=== PATIENT | male | born 1960 | race Caucasian/White ===

== ENCOUNTER 2016-12-14 21:07 | Observation (INO) | payer OTHER ==
[~2016-12-14] VITALS: Ht 172.7 cm; Wt 120.0 kg
[2016-12-14 22:52] VITALS: Ht 172.7 cm; Wt 120.0 kg
[2016-12-15] MEDS ORDERED: PIPER-TAZO 3.375 GM IV (PMX) 100 ML IVPB STA (01:15)
[2016-12-15] MEDS ORDERED: VANCOMYCIN 1 GM (PMX) 250 ML IVPB STA (01:15)
--- NOTE | 2016-12-15 02:01 | RADRPT ---
PROCEDURE: XR Chest. CLINICAL INDICATION: Possible sepsis. TECHNIQUE: Single frontal view of the chest. COMPARISON: None. FINDINGS: The cardiomediastinal silhouette is within normal limits. Mild atelectasis at the left lung base. T he lungs are otherwise clear. No signs of pleural fluid or pneumothorax are seen. The osseous struct ures and soft tissues are unremarkable. IMPRESSION: 1. Mild atelectasis at the left lung base. 2. Otherwise, no evidence for active cardiopulmonary disease. RPTAT: UU Physician Vitaliy Date Time Electronically viewed and signed by Physician Vitaliy on 12/15/2016 02:01 RS/
[2016-12-15 02:09] LABS: BASOPHIL # 0.1 10^3/ul (0.0-0.1); BASOPHILS % 0.5 % (0.0-2.0); EOSINOPHILS # 0.5 10^3/ul (0.0-0.5); EOSINOPHILS % 4.9 % (0.0-7.0); HEMOGLOBIN 14.5 g/dl (14.0-18.0); LYMPHOCYTES # 2.9 10^3/ul (0.8-2.9); LYMPHOCYTES % 26.5 % (15.0-51.0); MEAN CORPUSCULAR HEMOGLOBIN 29.1 pg (29.0-33.0); MEAN CORPUSCULAR HGB CONC 34.5 g/dl (32.0-37.0); MEAN CORPUSCULAR VOLUME 84.2 fl (82.0-101.0); MONOCYTE # 0.7 10^3/ul (0.3-0.9); MONOCYTES % 5.9 % (0.0-11.0); NEUTROPHILS % 61.7 % (39.0-77.0); PLATELET COUNT 252 10^3/UL (140-415); RED BLOOD COUNT 4.99 10^6/ul (4.70-6.10); RED CELL DISTRIBUTION WIDTH 13.2 % (11.5-14.5)
[2016-12-15 02:25] LABS: INR 0.91; PROTIME 12.3 Sec (12.2-14.2)
[2016-12-15 02:26] LABS: PARTIAL THROMBOPLASTIN TIME 31.2 Sec (25.0-35.0)
[2016-12-15 02:28] LABS: ADD UMIC NO; UR ASCORBIC ACID NEGATIVE (NEGATIVE); UR BILIRUBIN (Dip) NEGATIVE (NEGATIVE); UR BLOOD (Dip) NEGATIVE (NEGATIVE); UR CLARITY CLEAR (CLEAR); UR COLOR YELLOW (YELLOW); UR GLUCOSE (Dip) NEGATIVE (NEGATIVE); UR KETONES (Dip) NEGATIVE (NEGATIVE); UR LEUKOCYTE ESTERASE (Dip) NEGATIVE Leu/ul (NEGATIVE); UR NITRITE (Dip) NEGATIVE (NEGATIVE); UR SPECIFIC GRAVITY (Dip) 1.023 (1.003-1.030); UR TOTAL PROTEIN (Dip) NEGATIVE (NEGATIVE); UR UROBILINOGEN (Dip) NEGATIVE (NEGATIVE)
[2016-12-15 02:30] LABS: ALANINE AMINOTRANSFERASE 51 IU/L (13-69); ALBUMIN/GLOBULIN RATIO 1.21; ALKALINE PHOSPHATASE 71 IU/L (42-121); ANION GAP 18 (8-16); ASPARTATE AMINO TRANSFERASE 25 IU/L (15-46); BILIRUBIN,INDIRECT 0.6 mg/dl (0-1.1); BILIRUBIN,TOTAL 0.6 mg/dl (0.2-1.3); BLOOD UREA NITROGEN 15 mg/dl (7-20); CALCIUM 9.5 mg/dl (8.4-10.2); CARBON DIOXIDE 29 mmol/L (21-31); CHLORIDE 97 mmol/L (97-110); CREATININE 0.85 mg/dl (0.61-1.24); GLUCOSE 139 mg/dl (70-220); POTASSIUM 4.2 mmol/L (3.5-5.1); SODIUM 140 mmol/L (135-144); TOTAL PROTEIN 7.3 g/dl (6.1-8.1)
[2016-12-15] MEDS ORDERED: FUROSEMIDE 40 MG INJ IV ONE (03:00)
[2016-12-15 03:06] LABS: TROPONIN-I < 0.012 ng/ml (0.00-0.12)
--- NOTE | 2016-12-15 03:23 | ERA ---
ER Documentation Chief Complaint Date/Time DATE: 12/15/16 TIME: 03:21 Chief Complaint Cellulitis on right lower leg with drainage. PMD encouraged pt. to [facility] ER HPI 48-year-old male so at his right lower leg with drainage. He was on outpatient antibiotics and was rechecked by PMD told to come in to be further evaluated for intravenous antibiotics and possible admission. Denies any fevers or chills does complain of chronic swelling of his legs. ROS All systems reviewed and are negative except as per history of present illness. Allergies Allergies: Coded Allergies: Unknown: Unable to obtain (Unverified , 12/15/16) Physical Exam Vitals Vital Signs Date Time Temp Pulse Resp B/P Pulse Ox O2 Delivery O2 Flow Rate FiO2 12/14/16 22:52 98.6 101 18 137/85 96 Physical Exam Const: [] Head: Atraumatic Eyes: Normal Conjunctiva ENT: Normal External Ears, Nose and Mouth. Neck: Full range of motion..~ No meningismus. Resp: Clear to auscultation bilaterally Cardio: Regular rate and rhythm, no murmurs Abd: Soft, non tender, non distended. Normal bowel sounds Skin: Right lower extremity with erythema induration and purulent drainage involving distal midcalf Back: No midline or flank tenderness Ext: No cyanosis, or edema Neur: Awake and alert Psych: Normal Mood and Affect Result Diagram: 12/15/16 0149 12/15/16 014 Results 24 hrs Laboratory Tests Test 12/15/16 01:49 White Blood Count 11.010^3/ul Red Blood Count 4.9910^6/ul Hemoglobin 14.5g/dl Hematocrit 42.0% Mean Corpuscular Volume 84.2fl Mean Corpuscular Hemoglobin 29.1pg Mean Corpuscular Hemoglobin Concent 34.5g/dl Red Cell Distribution Width 13.2% Platelet Count 26601^3/UL Mean Platelet Volume 9.0fl Neutrophils % 61.7% Lymphocytes % 26.5% Monocytes % 5.9% Eosinophils % 4.9% Basophils % 0.5% Nucleated Red Blood Cells % 0.0/100WBC Neutrophils # (Manual) 6.810^3/ul Lymphocytes # 2.910^3/ul Monocytes # 0.710^3/ul Eosinophils # 0.510^3/ul Basophils # 0.110^3/ul Nucleated Red Blood Cells # 0.010^3/ul Prothrombin Time 12.3Sec Prothrombin Time Ratio 1.0 INR International Normalized Ratio 0.91 Activated Partial Thromboplast Time 31.2Sec Urine Color YELLOW Urine Clarity CLEAR Urine pH 5.0 Urine Specific [place] 1.023 Urine Ketones NEGATIVEmg/dL Urine Nitrite NEGATIVEmg/dL Urine Bilirubin NEGATIVEmg/dL Urine Urobilinogen NEGATIVEmg/dL Urine Leukocyte Esterase NEGATIVELeu/ul Urine Hemoglobin NEGATIVEmg/dL Urine Glucose NEGATIVEmg/dL Urine Total Protein NEGATIVEmg/dl Sodium Level 140mmol/L Potassium Level 4.2mmol/L Chloride Level 97mmol/L Carbon Dioxide Level 29mmol/L Anion Gap 18 Blood Urea Nitrogen 15mg/dl Creatinine 0.85mg/dl Glucose Level 139mg/dl Lactic Acid Level 1.7mmol/L Calcium Level 9.5mg/dl Total Bilirubin 0.6mg/dl Direct Bilirubin 0.00mg/dl Indirect Bilirubin 0.6mg/dl Aspartate Amino Transf (AST/SGOT) 25IU/L Alanine Aminotransferase (ALT/SGPT) 51IU/L Alkaline Phosphatase 71IU/L Troponin I < 0.012ng/ml Total Protein 7.3g/dl Albumin 4.0g/dl Globulin 3.30g/dl Albumin/Globulin Ratio 1.21 Current Medications Medications (Trade) Dose Ordered Sig/Theodora Route PRN Reason Start Time Stop Time Status Last Admin Dose Admin Vancomycin HCl 250 ml @ 125 mls/hr ONCE STAT IVPB 12/15/16 01:15 12/15/16 03:14 DC 12/15/16 02:15 Piperacillin Sod/ Tazobactam Sod (Zosyn 3.375gm/ 100 ml (Pmx)) 100 ml @ 100 mls/hr ONCE STAT IVPB 12/15/16 01:15 12/15/16 02:14 DC 12/15/16 01:15 Furosemide (Lasix) 40 mg ONCE ONCE IV 12/15/16 03:00 12/15/16 03:01 DC Procedures/MDM Blood cultures pending. Chest X-ray 1V Interpreted by me: Soft Tissue: No acute abnormalities Bones: No acute abnormalities Mediastinum/Cardiac Silhouette/Lungs: No acute abnormalities EKG: Rate/Rhythm: Normal Sinus Rhythm QRS, ST, T-waves: No changes consistent w/ acute ischemia Impression: No evidence of ischemia or arrhythmia Medical decision-makin-year-old male was cellulitis of lower extremity with outpatient management failure. Patient will be admitted to Departure Diagnosis: Primary Impression: Cellulitis Qualified Code: L03.115 - Cellulitis of right lower extremity Condition: Serious ELIESER CORREA Dec 15, 2016 03:23
[2016-12-15] MEDS ORDERED: GABA100C14 PO (03:49)
[2016-12-15] MEDS ORDERED: LOSA1TAB19 PO (03:49)
[2016-12-15] MEDS ORDERED: METF-480 PO (03:49)
[2016-12-15] MEDS ORDERED: HYDR-902 PO (03:49)
[2016-12-15] MEDS ORDERED: ASPI-664 PO (03:49)
[2016-12-15] MEDS ORDERED: DIPH25CA6 PO (03:49)
[2016-12-15] MEDS ORDERED: DOCUSATE SODIUM 100 MG CAP PO PRN (04:00)
[2016-12-15] MEDS ORDERED: ONDANSETRON 4 MG INJ IV PRN (04:00)
[2016-12-15] MEDS ORDERED: BISACODYL 10 MG SUPP PR PRN (04:00)
[2016-12-15] MEDS ORDERED: ACETAMINOPHEN 325 MG TAB PO PRN (04:00)
[2016-12-15] MEDS ORDERED: VANCOMYCIN IV PER PHARMACY XX SCH (04:00)
[2016-12-15] MEDS ORDERED: MAGNESIUM HYDROXIDE 30ML CUP PO PRN (04:00)
[2016-12-15] MEDS ORDERED: NACL 0.9% 3 ML SYG IV SCH (04:00)
[2016-12-15] MEDS ORDERED: DIPHENHYDRAMINE 25 MG CAP PO PRN (04:00)
[2016-12-15] MEDS ORDERED: VANCOMYCIN 1 GM in NS 250 ML IVPB SCH (05:00)
[2016-12-15] MEDS ORDERED: FUROSEMIDE 40 MG INJ IV SCH (06:00)
[2016-12-15 06:12] LABS: BASOPHIL # 0.1 10^3/ul (0.0-0.1); BASOPHILS % 0.6 % (0.0-2.0); EOSINOPHILS # 0.4 10^3/ul (0.0-0.5); EOSINOPHILS % 5.4 % (0.0-7.0); HEMATOCRIT 41.5 % (42.0-52.0); LYMPHOCYTES # 2.5 10^3/ul (0.8-2.9); LYMPHOCYTES % 31.7 % (15.0-51.0); MEAN CORPUSCULAR HEMOGLOBIN 28.6 pg (29.0-33.0); MEAN CORPUSCULAR HGB CONC 33.7 g/dl (32.0-37.0); MEAN CORPUSCULAR VOLUME 84.9 fl (82.0-101.0); MONOCYTE # 0.5 10^3/ul (0.3-0.9); MONOCYTES % 5.8 % (0.0-11.0); PLATELET COUNT 239 10^3/UL (140-415); RED BLOOD COUNT 4.89 10^6/ul (4.70-6.10); RED CELL DISTRIBUTION WIDTH 13.3 % (11.5-14.5)
[2016-12-15 06:55] LABS: CALCIUM 8.9 mg/dl (8.4-10.2); CREATININE 0.84 mg/dl (0.61-1.24); MAGNESIUM 1.9 mg/dl (1.7-2.5); PHOSPHORUS 4.6 mg/dl (2.5-4.9); POTASSIUM 3.7 mmol/L (3.5-5.1)
[2016-12-15] MEDS: INSULIN ASPART [NOVOLOG] 3 ML PEN SC SCH ×4 (08:00→21:00)
--- NOTE | 2016-12-15 08:17 | RADRPT ---
PROCEDURE: Ultrasound of the bilateral lower extremity venous system. CLINICAL INDICATION: Bilateral lower extremity pain. TECHNIQUE: Bobo scale with and without compression, color doppler, spectral doppler of the venous system of the bilateral lower extremities was performed. Venous augmentation maneuvers were utilized . COMPARISON: No prior studies are available for comparison. FINDINGS: RIGHT: Common femoral vein:Patent and compressible. Femoral vein:Patent and compressible. Popliteal vein:Patent and compressible. Visualized calf veins:Right calf veins limited visualization due to wound dressing. Soft tissues:Normal LEFT: Common femoral vein:Patent and compressible. Femoral vein:Patent and compressible. Popliteal vein:Patent and compressible. Visualized calf veins:Patent and compressible. Soft tissues:Normal IMPRESSION: 1. No evidence of deep vein thrombosis. RPTAT: AACC Physician Stephen Date Time Electronically viewed and signed by Physician Stephen on 12/15/2016 08:17 /
[2016-12-15] MEDS ORDERED: DEXTROSE 50% 50 ML SYRINGE IV PRN ×2 (08:30)
[2016-12-15] MEDS ORDERED: GLUCOSE GEL 15 GRAM TUBE PO PRN ×2 (08:30)
[2016-12-15] MEDS ORDERED: GLUCOSE GEL 15 GRAM TUBE BUCCAL PRN (08:30)
[2016-12-15] MEDS ORDERED: GLUCAGON 1 MG INJ IM PRN (08:30)
[2016-12-15] MEDS: HYDROCODONE/APAP (10/325) TAB PO PRN (08:49)
[2016-12-15] MEDS: FUROSEMIDE 40 MG INJ IV SCH ×2 (08:51→17:54)
[2016-12-15] MEDS: ENOXAPARIN 40 MG/0.4 ML SYG SC SCH (08:58)
[2016-12-15] MEDS: GABAPENTIN 100 MG CAP PO SCH ×2 (12:10→23:54)
[2016-12-15] MEDS: ASPIRIN (EC) 81 MG TAB PO SCH (12:11)
[2016-12-15] MEDS: FAMOTIDINE 20 MG TAB PO SCH ×2 (12:11→23:54)
[2016-12-15] MEDS: LEVOFLOXACIN 750 MG TABLET PO SCH (12:11)
[2016-12-15 13:43] VITALS: TEMP 98.2
[2016-12-15] MEDS: metFORMIN 500 MG TAB PO SCH ×2 (13:46→19:40)
[2016-12-15] MEDS ORDERED: VANCOMYCIN 1.5 GM in SOD CHLORIDE 0.9% 250 ML IVPB SCH (14:00)
[2016-12-15 14:35] VITALS: BP 114/76; PULSE 94; RESP 20
[2016-12-15] MEDS ORDERED: LIDOCAINE 1% (MPF) 5 ML VIAL SC ONE (19:30)
--- NOTE | 2016-12-15 20:54 | HP ---
Date/Time of Note Date/Time of Note DATE: 12/15/16 TIME: 20:39 Assessment/Plan VTE Prophylaxis VTE Prophylaxis Intervention: LMWH Assessment/Plan Assessment/Plan 56-year-old male with: 1. Right lower extremity cellulitis, likely infected wound, wrapping still in place, wound care pending, wound culture pending. Continue IV vancomycin with p.o. Levaquin PICC line placement in a.m. Wound care consult and evaluation in a.m. Plan of care discussed with patient and his parents at bedside. 2. Diabetes mellitus: continue metformin, sliding scale insulin, hemoglobin A1c 6.6. 3. Hypertension: Continue outpatient medications 4. Hyperlipidemia: Check fasting lipid panel, statin therapy if needed 5. Tobacco use: he is encouraged to quit, nicotine patch if needed. Prophylaxis: Lovenox for DVT prophylaxis, Pepcid for GI prophylaxis Disposition: Wound care evaluation, PICC line placement in a.m., IV antibiotics , discharge planning in the next 24 to 48 hours HPI/ROS Admit Date/Time Admit Date/Time Dec 15, 2016 at 02:52 Hx of Present Illness Chief complaint: Right leg infection History of presenting illness: This is a 56-year-old male with history of ichthyosis and dry skin especially of the lower extremities, diabetes mellitus, hypertension, hyperlipidemia who was recently treated at an outside hospital for cellulitis and wound infection right lower extremity apparently finished IV antibiotic course 3 weeks ago, was doing well until 3 days ago when he started noticing increased erythema, edema, pruritus and pain of the right lower extremity adjacent to the wound he has. He does have a wrap on currently but there is erythema above the wrap. He denies any fevers, chills, nausea, vomiting. He was sent over to the emergency department by his primary care physician apparently to be admitted for wound care and IV antibiotics. He was started on Levaquin along with IV vancomycin, white blood cell count has improved today. Was still waiting for wound care to evaluate and see patient. Plan is for the patient to be discharged in the next 48 hours if no surgical intervention needed with IV antibiotics for home and wound care as an outpatient. ROS Constitutional: no complaints Eyes: no complaints ENT: no complaints Respiratory: no complaints Cardiovascular: no complaints Gastrointestinal: no complaints Genitourinary: no complaints Musculoskeletal: no complaints Skin: other (Dry skin with patches, right lower extremity with wrap and old dressing in place), pruritis Neurologic: no complaints Psychological: no complaints PMH/Family/Social Past Medical History Medical History: diabetes, hypertension, other (Obesity) Past Surgical History Status post tonsillectomy as a child Family History Significant Family History: no pertinent family hx Social History Alcohol Use: occasionally Smoking Status: Current every day smoker (Up to 1 pack a day the past 40 years) Drug Use: none Exam/Review of Systems Vital Signs Vitals Vital Signs Date Time Temp Pulse Resp B/P Pulse Ox O2 Delivery O2 Flow Rate FiO2 12/15/16 14:35 97.0 94 20 114/76 95 Room Air Exam Constitutional: alert, oriented, other (obese), well developed Psych: no complaints Head: atraumatic, normocephalic Eyes: nl conjunctiva, nl sclera ENMT: mucosa pink and moist, nl external ears & nose, nl lips & teeth, nl nasal mucosa & septum Respiratory: clear to auscultation, normal air movement Cardiovascular: nl pulses, regular rate and rhythm Gastrointestinal: non-tender, soft Musculoskeletal: nl gait and stance, other (Right lower extremity with dressing /wrap in place) Extremities: normal pulses 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 Tenderness to palpation along the dressing) Labs Result Diagram: 12/15/16 0530 12/15/16 0530 Medications Medications Home medications: Refer to admission medication reconciliation Current Medications Ondansetron HCl (Zofran Inj) 4 mg Q6H PRN IV NAUSEA AND/OR VOMITING; Start at 04:00 Acetaminophen (Tylenol Tab) 650 mg Q6H PRN PO PAIN LEVEL 1-3 OR FEVER; Start at 04:00 Morphine Sulfate (morphine) 2 mg Q4H PRN IV SEVERE PAIN LEVEL 7-10; Start 12/15 at 04:00 Docusate Sodium (Colace) 100 mg Q12H PRN PO CONSTIPATION; Start 12/15/16 at 04: 00 Magnesium Hydroxide (Milk Of Mag) 30 ml DAILY PRN PO CONSTIPATION; Start at 04:00 Bisacodyl (Dulcolax Supp) 10 mg DAILY PRN [place] CONSTIPATION; Start 12/15/16 at 04 :00 Famotidine (Pepcid) 20 mg Q12 PO Last administered on 12/15/16 12:11; Admin Dose 20 MG; Start 12/15/16 at 09:00 Enoxaparin Sodium (Lovenox) 40 mg DAILY SC Last administered on 12/15/16 08:58 ; Admin Dose 40 MG; Start 12/15/16 at 09:00 Levofloxacin (Levaquin) 750 mg DAILY@06 PO Last administered on 12/15/16 12:11 ; Admin Dose 750 MG; Start 12/15/16 at 06:00 Aspirin (Halfprin) 81 mg DAILY PO Last administered on 12/15/16 12:11; Admin Dose 81 MG; Start 12/15/16 at 09:00 Diphenhydramine HCl (Benadryl) 25 mg Q6 PRN PO ITCHING Last administered on 04:59; Admin Dose 25 MG; Start 12/15/16 at 04:00 Gabapentin (Neurontin) 200 mg BID PO Last administered on 12/15/16 12:10; Admin Dose 200 MG; Start 12/15/16 at 09:00 Acetaminophen/ Hydrocodone Bitart ([place] (10/325)) 1 tab Q6H PRN PO pain Last administered on 12/15/16 08:49; Admin Dose 1 TAB; Start 12/15/16 at 04:00 Diagnostic Test (Pha) (Accu-Chek) 1 ea 02 XX ; Start 12/16/16 at 02:00 Miscellaneous Information 1 ea NOTE XX ; Start 12/15/16 at 08:30 Glucose (Glutose) 15 gm Q15M PRN PO DECREASED GLUCOSE; Start 12/15/16 at 08:30 Glucose (Glutose) 22.5 gm Q15M PRN PO DECREASED GLUCOSE; Start 12/15/16 at 08: 30 Dextrose (D50w Syringe) 25 ml Q15M PRN IV DECREASED GLUCOSE; Start 12/15/16 at 08:30 Dextrose (D50w Syringe) 50 ml Q15M PRN IV DECREASED GLUCOSE; Start 12/15/16 at 08:30 Glucagon (Glucagen) 1 mg Q15M PRN IM DECREASED GLUCOSE; Start 12/15/16 at 08:30 Glucose 15 gm 15 gm Q15M PRN BUCCAL DECREASED GLUCOSE; Start 12/15/16 at 08:30 Vancomycin HCl/ Sodium Chloride (Vancocin/NS) 250 ml @ 83.333 mls/ hr Q12H IVPB ; Start 12/16/16 at 05:00 Miscellaneous Information (*Rx Drug Level Order Reminder*) VANCOMYCIN TROUGH AT 1600 ONCE ONCE XX ; Start 12/16/16 at 16:00; Stop 12/16/16 at 16:01 Procedures Procedures PROCEDURE: XR Chest. CLINICAL INDICATION: Possible sepsis. TECHNIQUE: Single frontal view of the chest. COMPARISON: None. FINDINGS: The cardiomediastinal silhouette is within normal limits. Mild atelectasis at the left lung base. The lungs are otherwise clear. No signs of pleural fluid or pneumothorax are seen. The osseous structures and soft tissues are unremarkable. IMPRESSION: 1. Mild atelectasis at the left lung base. 2. Otherwise, no evidence for active cardiopulmonary disease. RPTAT: [facility]U Physician Vitaliy Date Time Electronically viewed and signed by Physician Vitaliy on 12/15/2016 02:01 PROCEDURE: Ultrasound of the bilateral lower extremity venous system. CLINICAL INDICATION: Bilateral lower extremity pain. TECHNIQUE: Bobo scale with and without compression, color doppler, spectral doppler of the venous system of the bilateral lower extremities was performed. Venous augmentation maneuvers were utilized. COMPARISON: No prior studies are available for comparison. FINDINGS: RIGHT: Common femoral vein: Patent and compressible. Femoral vein: Patent and compressible. Popliteal vein: Patent and compressible. Visualized calf veins: Right calf veins limited visualization due to wound dressing. Soft tissues: Normal LEFT: Common femoral vein: Patent and compressible. Femoral vein: Patent and compressible. Popliteal vein: Patent and compressible. Visualized calf veins: Patent and compressible. Soft tissues: Normal IMPRESSION: 1. No evidence of deep vein thrombosis. RPTAT: AACC Elvis Chao, Physician Date Time Electronically viewed and signed by Elvis Chao, Physician on 12/15/2016 08: 17 ROSALBA DEE Dec 15, 2016 20:49
[2016-12-15] MEDS: morphine 2 MG INJ IV PRN (23:55)
[2016-12-16 00:16] VITALS: BP 122/72; RESP 19
[2016-12-16] MEDS: ACCU-CHEK XX SCH (02:44)
[2016-12-16 04:12] VITALS: BP 139/69; RESP 18
[2016-12-16] MEDS: VANCOMYCIN 1.5 GM in SOD CHLORIDE 0.9% 250 ML IVPB SCH ×2 (05:45→18:00)
[2016-12-16] MEDS: LEVOFLOXACIN 750 MG TABLET PO SCH (05:45)
[2016-12-16 06:38] LABS: BASOPHIL # 0.1 10^3/ul (0.0-0.1); BASOPHILS % 0.5 % (0.0-2.0); EOSINOPHILS # 0.4 10^3/ul (0.0-0.5); EOSINOPHILS % 4.3 % (0.0-7.0); HEMATOCRIT 39.6 % (42.0-52.0); HEMOGLOBIN 13.2 g/dl (14.0-18.0); LYMPHOCYTES # 1.7 10^3/ul (0.8-2.9); LYMPHOCYTES % 18.3 % (15.0-51.0); MEAN CORPUSCULAR HEMOGLOBIN 28.4 pg (29.0-33.0); MEAN CORPUSCULAR HGB CONC 33.3 g/dl (32.0-37.0); MEAN CORPUSCULAR VOLUME 85.2 fl (82.0-101.0); MEAN PLATELET VOLUME 9.1 fl (7.4-10.4); MONOCYTE # 0.6 10^3/ul (0.3-0.9); MONOCYTES % 6.7 % (0.0-11.0); NEUTROPHILS % 69.7 % (39.0-77.0); PLATELET COUNT 235 10^3/UL (140-415); RED BLOOD COUNT 4.65 10^6/ul (4.70-6.10); RED CELL DISTRIBUTION WIDTH 13.4 % (11.5-14.5); WHITE BLOOD COUNT 9.4 10^3/ul (4.8-10.8)
[2016-12-16 07:04] LABS: PHOSPHORUS 4.5 mg/dl (2.5-4.9)
[2016-12-16 07:08] LABS: CHOL/HDL RATIO 5.3 RATIO
[2016-12-16 07:12] LABS: ALBUMIN 3.6 g/dl (3.3-4.9); ALBUMIN/GLOBULIN RATIO 1.16; BILIRUBIN,INDIRECT 0.7 mg/dl (0-1.1); BILIRUBIN,TOTAL 0.7 mg/dl (0.2-1.3); CALCIUM 9.1 mg/dl (8.4-10.2); CREATININE 0.85 mg/dl (0.61-1.24); POTASSIUM 3.9 mmol/L (3.5-5.1); TOTAL PROTEIN 6.7 g/dl (6.1-8.1)
[2016-12-16 08:00] VITALS: BP 117/72; RESP 18
[2016-12-16] MEDS: FAMOTIDINE 20 MG TAB PO SCH ×2 (08:00→21:22)
[2016-12-16] MEDS: GABAPENTIN 100 MG CAP PO SCH ×2 (08:00→21:22)
[2016-12-16] MEDS: ASPIRIN (EC) 81 MG TAB PO SCH (08:00)
[2016-12-16] MEDS: metFORMIN 500 MG TAB PO SCH ×2 (08:00→17:36)
[2016-12-16] MEDS: ENOXAPARIN 40 MG/0.4 ML SYG SC SCH (08:00)
[2016-12-16] MEDS: INSULIN ASPART [NOVOLOG] 3 ML PEN SC SCH ×4 (09:14→21:00)
[2016-12-16] MEDS: HYDROCODONE/APAP (10/325) TAB PO PRN (12:55)
--- NOTE | 2016-12-16 13:50 | PN ---
Date/Time of Note Date/Time of Note DATE: 12/16/16 TIME: 13:46 Assessment/Plan VTE Prophylaxis VTE Prophylaxis Intervention: LMWH Lines/Catheters IV [facility] Saline Lock Assessment/Plan Assessment/Plan 56-year-old male with: 1. Right lower extremity cellulitis, no infected open wound seen, dressing has been changed this morning by wound care. Wound culture pending. Continue IV vancomycin with p.o. Levaquin PICC line placement today Appreciate wound care consult recommendations this morning MRI right lower extremity pending to rule out osteomyelitis Plan of care discussed with patient 2. Diabetes mellitus: continue metformin, sliding scale insulin, hemoglobin A1c 6.6. 3. Hypertension: Continue outpatient medications 4. Hyperlipidemia: Check fasting lipid panel, statin therapy if needed 5. Tobacco use: he is encouraged to quit, nicotine patch if needed. Prophylaxis: Lovenox for DVT prophylaxis, Pepcid for GI prophylaxis Disposition: MRI right lower extremity, PICC line placement, IV antibiotics, discharge planning in the next 24 hours stable and no further acute findings. Subjective 24 Hr Interval Summary Free Text/Dictation Patient doing well this morning, he remains hemodynamically stable, white blood cell count trending down. PICC line to be placed today, MRI of the right lower extremity ordered. Wound care have seen the patient and changed the dressing, there is no open wound. Exam/Review of Systems Vital Signs Vitals Vital Signs Date Time Temp Pulse Resp B/P Pulse Ox O2 Delivery O2 Flow Rate FiO2 12/16/16 08:00 98.8 88 18 117/72 96 12/15/16 14:35 Room Air Intake and Output 12/15/16 12/15/16 12/16/16 15:00 23:00 07:00 Intake Total 150 ml Balance 150 ml Exam Constitutional: alert, oriented, well developed Respiratory: clear to auscultation, normal air movement Cardiovascular: nl pulses, regular rate and rhythm Gastrointestinal: soft Musculoskeletal: nl gait and stance, other (Right lower extremity cellulitis with significant erythema and edema) Extremities: edema (Lower extremity), normal pulses, other (No clubbing or cyanosis) Neurological: SURGICAL NURSE II-XII intact, nl mental status, nl speech, nl strength Results Result Diagram: 12/16/16 0504 12/16/16 0504 Results 24 hrs Laboratory Tests Test 12/15/16 17:31 12/15/16 23:57 12/16/16 02:36 12/16/16 05:01 Bedside Glucose 137 151 154 Erythrocyte Sedimentation Rate 20.0 Test 12/16/16 05:04 12/16/16 07:52 12/16/16 09:12 12/16/16 12:20 White Blood Count 9.4 Red Blood Count 4.65 L Hemoglobin 13.2 L Hematocrit 39.6 L Mean Corpuscular Volume 85.2 Mean Corpuscular Hemoglobin 28.4 L Mean Corpuscular Hemoglobin Concent 33.3 Red Cell Distribution Width 13.4 Platelet Count 235 Mean Platelet Volume 9.1 Neutrophils % 69.7 Lymphocytes % 18.3 Monocytes % 6.7 Eosinophils % 4.3 Basophils % 0.5 Nucleated Red Blood Cells % 0.0 Neutrophils # (Manual) 6.6 Lymphocytes # 1.7 Monocytes # 0.6 Eosinophils # 0.4 Basophils # 0.1 Nucleated Red Blood Cells # 0.0 Sodium Level 140 Potassium Level 3.9 Chloride Level 96 L Carbon Dioxide Level 31 Anion Gap 17 H Blood Urea Nitrogen 14 Creatinine 0.85 Glucose Level 139 Calcium Level 9.1 Phosphorus Level 4.5 Magnesium Level 2.0 Total Bilirubin 0.7 Direct Bilirubin 0.00 Indirect Bilirubin 0.7 Aspartate Amino Transf (AST/SGOT) 26 Alanine Aminotransferase (ALT/SGPT) 54 Alkaline Phosphatase 62 Total Protein 6.7 Albumin 3.6 Globulin 3.10 Albumin/Globulin Ratio 1.16 Triglycerides Level 218 H Cholesterol Level 172 LDL Cholesterol, Calculated 96 HDL Cholesterol 32 Cholesterol/HDL Ratio 5.3 Bedside Glucose 151 152 167 Medications Medications Current Medications Ondansetron HCl (Zofran Inj) 4 mg Q6H PRN IV NAUSEA AND/OR VOMITING Last administered on 12/15/16 23:54; Admin Dose 4 MG; Start 12/15/16 at 04:00 Acetaminophen (Tylenol Tab) 650 mg Q6H PRN PO PAIN LEVEL 1-3 OR FEVER; Start at 04:00 Morphine Sulfate (morphine) 2 mg Q4H PRN IV SEVERE PAIN LEVEL 7-10 Last administered on 12/15/16 23:55; Admin Dose 2 MG; Start 12/15/16 at 04:00 Docusate Sodium (Colace) 100 mg Q12H PRN PO CONSTIPATION; Start 12/15/16 at 04: 00 Magnesium Hydroxide (Milk Of Mag) 30 ml DAILY PRN PO CONSTIPATION; Start at 04:00 Bisacodyl (Dulcolax Supp) 10 mg DAILY PRN IN CONSTIPATION; Start 12/15/16 at 04 :00 Famotidine (Pepcid) 20 mg Q12 PO Last administered on 12/16/16 08:00; Admin Dose 20 MG; Start 12/15/16 at 09:00 Enoxaparin Sodium (Lovenox) 40 mg DAILY SC Last administered on 12/15/16 08:58 ; Admin Dose 40 MG; Start 12/15/16 at 09:00 Levofloxacin (Levaquin) 750 mg DAILY@06 PO Last administered on 12/16/16 05:45 ; Admin Dose 750 MG; Start 12/15/16 at 06:00 Aspirin (Halfprin) 81 mg DAILY PO Last administered on 12/16/16 08:00; Admin Dose 81 MG; Start 12/15/16 at 09:00 Diphenhydramine HCl (Benadryl) 25 mg Q6 PRN PO ITCHING Last administered on 04:59; Admin Dose 25 MG; Start 12/15/16 at 04:00 Gabapentin (Neurontin) 200 mg BID PO Last administered on 12/16/16 08:00; Admin Dose 200 MG; Start 12/15/16 at 09:00 Acetaminophen/ Hydrocodone Bitart ([place] (10/325)) 1 tab Q6H PRN PO pain Last administered on 12/16/16 12:55; Admin Dose 1 TAB; Start 12/15/16 at 04:00 Diagnostic Test (Pha) (Accu-Chek) 1 ea 02 XX Last administered on 12/16/16 02: 44; Admin Dose 1 EA; Start 12/16/16 at 02:00 Miscellaneous Information 1 ea NOTE XX ; Start 12/15/16 at 08:30 Glucose (Glutose) 15 gm Q15M PRN PO DECREASED GLUCOSE; Start 12/15/16 at 08:30 Glucose (Glutose) 22.5 gm Q15M PRN PO DECREASED GLUCOSE; Start 12/15/16 at 08: 30 Dextrose (D50w Syringe) 25 ml Q15M PRN IV DECREASED GLUCOSE; Start 12/15/16 at 08:30 Dextrose (D50w Syringe) 50 ml Q15M PRN IV DECREASED GLUCOSE; Start 12/15/16 at 08:30 Glucagon (Glucagen) 1 mg Q15M PRN IM DECREASED GLUCOSE; Start 12/15/16 at 08:30 Glucose 15 gm 15 gm Q15M PRN BUCCAL DECREASED GLUCOSE; Start 12/15/16 at 08:30 Vancomycin HCl/ Sodium Chloride (Vancocin/NS) 250 ml @ 83.333 mls/ hr Q12H IVPB Last administered on 12/16/16t 05:45; Admin Dose 83.333 MLS/HR; Start at 05:00 Miscellaneous Information (*Rx Drug Level Order Reminder*) VANCOMYCIN TROUGH AT 1600 ONCE ONCE XX ; Start 12/16/16 at 16:00; Stop 12/16/16 at 16:01 ROSALBA DEE Dec 16, 2016 13:50
[2016-12-16] MEDS: morphine 2 MG INJ IV PRN ×2 (15:14→21:22)
[2016-12-16 15:38] VITALS: BP 133/83; RESP 20
--- NOTE | 2016-12-16 16:56 | RADRPT ---
PROCEDURE: XR Chest. CLINICAL INDICATION: Check PICC line position. TECHNIQUE: Single frontal view. COMPARISON: 12/15/2016. FINDINGS: There is a left arm PICC line with the tip in the lower superior vena cava. There is mild atelectas is at the left lung base. The lungs are otherwise clear. The heart size is normal. There is no pleural effusion. There is no pneumothorax. IMPRESSION: 1. Left arm PICC line tip in satisfactory position. 2. Mild left basilar atelectasis. 3. Otherwise normal chest x-ray. RPTAT: QQ .Kanu Cordoba MD, Date Time Electronically viewed and signed by .Kanu Cordoba MD, on 12/16/2016 16:56 .R/
--- NOTE | 2016-12-16 17:36 | RADRPT ---
PROCEDURE: US guidance for PICC line CLINICAL INDICATION: PICC line placement TECHNIQUE: Multiple real-time images were acquired of the patient's arm utilizing a high resolutio n transducer. This was performed by the PICC line nurse for venous access. COMPARISON: None FINDINGS: See impression. IMPRESSION: Ultrasound guidance for PICC line placement. There is a patent and compressible left upper extremity vein. RPTAT: AA Physician Soheila Date Time Electronically viewed and signed by Dom Tilley Physician on 12/16/2016 17:36 /
[2016-12-16] MEDS ORDERED: SOD CHLORIDE 0.9% 100 ML ONE (19:05)
[2016-12-16 20:00] VITALS: BP 131/74; RESP 20
[2016-12-17 02:00] VITALS: BP 133/77; RESP 20
[2016-12-17] MEDS: ACCU-CHEK XX SCH (02:00)
[2016-12-17] MEDS ORDERED: VANCOMYCIN 2 GM in SOD CHLORIDE 0.9% 500 ML IVPB SCH (06:00)
[2016-12-17] MEDS: LEVOFLOXACIN 750 MG TABLET PO SCH (06:19)
[2016-12-17 07:14] LABS: BASOPHILS % 0.6 % (0.0-2.0); EOSINOPHILS # 0.3 10^3/ul (0.0-0.5); EOSINOPHILS % 4.1 % (0.0-7.0); HEMOGLOBIN 12.2 g/dl (14.0-18.0); LYMPHOCYTES # 1.9 10^3/ul (0.8-2.9); LYMPHOCYTES % 26.8 % (15.0-51.0); MEAN CORPUSCULAR HEMOGLOBIN 28.5 pg (29.0-33.0); MEAN CORPUSCULAR VOLUME 86.4 fl (82.0-101.0); MONOCYTE # 0.6 10^3/ul (0.3-0.9); MONOCYTES % 7.7 % (0.0-11.0); NEUTROPHILS % 60.5 % (39.0-77.0); PLATELET COUNT 227 10^3/UL (140-415); RED BLOOD COUNT 4.28 10^6/ul (4.70-6.10); RED CELL DISTRIBUTION WIDTH 13.2 % (11.5-14.5); WHITE BLOOD COUNT 7.3 10^3/ul (4.8-10.8)
[2016-12-17 07:30] LABS: CALCIUM 8.7 mg/dl (8.4-10.2); CREATININE 0.74 mg/dl (0.61-1.24); POTASSIUM 3.7 mmol/L (3.5-5.1)
[2016-12-17 07:47] LABS: MAGNESIUM 2.2 mg/dl (1.7-2.5); PHOSPHORUS 4.2 mg/dl (2.5-4.9)
[2016-12-17 08:00] VITALS: BP 127/75; RESP 19
[2016-12-17] MEDS: INSULIN ASPART [NOVOLOG] 3 ML PEN SC SCH ×3 (08:00→17:56)
[2016-12-17] MEDS: GABAPENTIN 100 MG CAP PO SCH (08:14)
[2016-12-17] MEDS: FAMOTIDINE 20 MG TAB PO SCH (08:14)
[2016-12-17] MEDS: ASPIRIN (EC) 81 MG TAB PO SCH (08:15)
[2016-12-17] MEDS: ENOXAPARIN 40 MG/0.4 ML SYG SC SCH (08:21)
[2016-12-17] MEDS: metFORMIN 500 MG TAB PO SCH ×2 (08:23→17:55)
--- NOTE | 2016-12-17 10:26 | PN ---
Date/Time of Note Date/Time of Note DATE: 12/17/16 TIME: 10:26 Assessment/Plan VTE Prophylaxis VTE Prophylaxis Intervention: LMWH Lines/Catheters IV Catheter Type (from Nrs): PICC Line Central line still needed: Yes (Home IV antibiotic) Assessment/Plan Assessment/Plan 56-year-old male with: 1. Right lower extremity cellulitis, no infected open wound seen, dressing has been changed this morning by wound care. Least 50% improvement today. PICC line placed yesterday Wound culture pending. Given improvement on current antibiotics, discharge plan today after MRI done with 14 days of IV vancomycin with p.o. Levaquin Appreciate wound care consult and recommendations, home health for wound care. MRI right lower extremity pending this morning to rule out osteomyelitis but ESR within normal Discharge planned for today, once MRI done and if no critical findings. Discharge plan discussed with patient 2. Diabetes mellitus: continue metformin, sliding scale insulin, hemoglobin A1c 6.6. 3. Hypertension: Continue outpatient medications 4. Hyperlipidemia: Lipid panel, statin therapy if needed 5. Tobacco use: he is encouraged to quit, nicotine patch if needed. Prophylaxis: Lovenox for DVT prophylaxis, Pepcid for GI prophylaxis Disposition: MRI right lower extremity pending, PICC line placed, DC home later today with IV vancomycin and oral Levaquin for 14 days, so home health for PICC line care and wound care to be arranged. Subjective 24 Hr Interval Summary Free Text/Dictation Patient doing well today, right lower extremity cellulitis improved at least 50% , currently on vancomycin along with Levaquin, MRI of the right lower extremity this morning, ESR within normal. If no critical findings on MRI, patient will be discharged home today on 2 weeks of antibiotics for treatment of cellulitis. Wound care also will be ordered along with home health IV. Exam/Review of Systems Vital Signs Vitals Vital Signs Date Time Temp Pulse Resp B/P Pulse Ox O2 Delivery O2 Flow Rate FiO2 12/17/16 08:00 98.4 86 19 127/75 97 12/15/16 14:35 Room Air Intake and Output 12/16/16 12/16/16 12/17/16 15:00 23:00 07:00 Intake Total 250 ml 1330 ml 480 ml Balance 250 ml 1330 ml 480 ml Exam Constitutional: alert, oriented, well developed Respiratory: clear to auscultation, normal air movement Cardiovascular: nl pulses, regular rate and rhythm Gastrointestinal: non-tender, soft Musculoskeletal: nl gait and stance, other (Right lower extremity with improving cellulitis, at least 50% Improvement) Extremities: normal pulses Neurological: [employer] II-XII intact, nl mental status, nl speech, nl strength Results Result Diagram: 12/17/16 0554 12/17/16 0554 Results 24 hrs Laboratory Tests Test 12/16/16 12:20 12/16/16 15:54 12/16/16 17:34 12/16/16 21:28 Bedside Glucose 167 120 129 Vancomycin Level Trough 8.6 L Test 12/17/16 05:54 12/17/16 08:13 White Blood Count 7.3 # Red Blood Count 4.28 L Hemoglobin 12.2 L Hematocrit 37.0 L Mean Corpuscular Volume 86.4 Mean Corpuscular Hemoglobin 28.5 L Mean Corpuscular Hemoglobin Concent 33.0 Red Cell Distribution Width 13.2 Platelet Count 227 Mean Platelet Volume 9.0 Neutrophils % 60.5 Lymphocytes % 26.8 Monocytes % 7.7 Eosinophils % 4.1 Basophils % 0.6 Nucleated Red Blood Cells % 0.0 Neutrophils # (Manual) 4.4 Lymphocytes # 1.9 Monocytes # 0.6 Eosinophils # 0.3 Basophils # 0.0 Nucleated Red Blood Cells # 0.0 Sodium Level 139 Potassium Level 3.7 Chloride Level 102 Carbon Dioxide Level 30 Anion Gap 11 Blood Urea Nitrogen 12 Creatinine 0.74 Glucose Level 128 Calcium Level 8.7 Phosphorus Level 4.2 Magnesium Level 2.2 Bedside Glucose 138 Medications Medications Current Medications Ondansetron HCl (Zofran Inj) 4 mg Q6H PRN IV NAUSEA AND/OR VOMITING Last administered on 12/15/16 23:54; Admin Dose 4 MG; Start 12/15/16 at 04:00 Acetaminophen (Tylenol Tab) 650 mg Q6H PRN PO PAIN LEVEL 1-3 OR FEVER; Start at 04:00 Morphine Sulfate (morphine) 2 mg Q4H PRN IV SEVERE PAIN LEVEL 7-10 Last administered on 12/16/16 21:22; Admin Dose 2 MG; Start 12/15/16 at 04:00 Docusate Sodium (Colace) 100 mg Q12H PRN PO CONSTIPATION; Start 12/15/16 at 04: 00 Magnesium Hydroxide (Milk Of Mag) 30 ml DAILY PRN PO CONSTIPATION; Start at 04:00 Bisacodyl (Dulcolax Supp) 10 mg DAILY PRN [place] CONSTIPATION; Start 12/15/16 at 04 :00 Famotidine (Pepcid) 20 mg Q12 PO Last administered on 12/17/16 08:14; Admin Dose 20 MG; Start 12/15/16 at 09:00 Enoxaparin Sodium (Lovenox) 40 mg DAILY SC Last administered on 12/17/16 08:21 ; Admin Dose 40 MG; Start 12/15/16 at 09:00 Levofloxacin (Levaquin) 750 mg DAILY@06 PO Last administered on 12/17/16 06:19 ; Admin Dose 750 MG; Start 12/15/16 at 06:00 Aspirin (Halfprin) 81 mg DAILY PO Last administered on 12/17/16 08:15; Admin Dose 81 MG; Start 12/15/16 at 09:00 Diphenhydramine HCl (Benadryl) 25 mg Q6 PRN PO ITCHING Last administered on 04:59; Admin Dose 25 MG; Start 12/15/16 at 04:00 Gabapentin (Neurontin) 200 mg BID PO Last administered on 12/17/16 08:14; Admin Dose 200 MG; Start 12/15/16 at 09:00 Acetaminophen/ Hydrocodone Bitart ([place] (10/325)) 1 tab Q6H PRN PO pain Last administered on 12/16/16 12:55; Admin Dose 1 TAB; Start 12/15/16 at 04:00 Diagnostic Test (Pha) (Accu-Chek) 1 ea 02 XX Last administered on 12/16/16 02: 44; Admin Dose 1 EA; Start 12/16/16 at 02:00 Miscellaneous Information 1 ea NOTE XX ; Start 12/15/16 at 08:30 Glucose (Glutose) 15 gm Q15M PRN PO DECREASED GLUCOSE; Start 12/15/16 at 08:30 Glucose (Glutose) 22.5 gm Q15M PRN PO DECREASED GLUCOSE; Start 12/15/16 at 08: 30 Dextrose (D50w Syringe) 25 ml Q15M PRN IV DECREASED GLUCOSE; Start 12/15/16 at 08:30 Dextrose (D50w Syringe) 50 ml Q15M PRN IV DECREASED GLUCOSE; Start 12/15/16 at 08:30 Glucagon (Glucagen) 1 mg Q15M PRN IM DECREASED GLUCOSE; Start 12/15/16 at 08:30 Glucose 15 gm 15 gm Q15M PRN BUCCAL DECREASED GLUCOSE; Start 12/15/16 at 08:30 Vancomycin HCl/ Sodium Chloride (Vancocin/NS) 500 ml @ 125 mls/hr Q12H IVPB Last administered on 12/17/16t 06:08; Admin Dose 125 MLS/HR; Start 12/17/16 at 06: 00 IV Flush (NS 10 ml) 10 ml PRN PRN IV IV PROTOCOL; Start 12/16/16 at 19:00 ROSALBA DEE Dec 17, 2016 10:26
[2016-12-17 14:00] VITALS: BP 140/77; RESP 19
[2016-12-17] MEDS: HYDROCODONE/APAP (10/325) TAB PO PRN (14:19)
--- NOTE | 2016-12-17 16:42 | RADRPT ---
PROCEDURE: MRI of the right tibia / fibula CLINICAL INDICATION: Right lower extremity pain and swelling, infection, diabetic, cellulitis, con cern for osteomyelitis TECHNIQUE: Multiplanar multisequence images of the right tibia / fibula without IV contrast. Imag es were interpreted at a independent PACS workstation. COMPARISON: Ultrasound of the right lower extremity dated December 15, 2016 FINDINGS: There is moderate subcutaneous soft tissue swelling throughout the visualized right calf. There is no discrete drainable subcutaneous fluid collection. There is no evidence of myofascial edema or in tramuscular fluid collection. There is no evidence of acute fracture or osteomyelitis within the field of view. Bone marrow signa l appears normal. Limited assessment of the left tibia / fibula is grossly unremarkable. IMPRESSION: 1. Moderate nonspecific subcutaneous soft tissue swelling throughout the right calf, query cellulit is. 2. No drainable fluid collection. 3. No evidence of acute fracture or osteomyelitis. RPTAT: UU .Juan Apple MD, Date Time Electronically viewed and signed by .Juan Apple MD, on 12/17/2016 16:42 .K/
--- NOTE | 2016-12-17 17:57 | PDOCDIS ---
Discharge Instructions CONDITION Patient Condition: Stable HOME CARE INSTRUCTIONS: Diet Instructions: 2gm NaSpecial Diet: ADA diet ACTIVITY: Activity Restrictions: Slowly Increase Activity Keep Limb Elevated (right LE ) FOLLOW UP/APPOINTMENTS Follow-up Plan Follow up with PCP within 1 week Follow up with Home health wound care and Home Health RN for IV Follow up/referral to cash reconciliation specialist Dr Moore through [facility] ROSALBA DEE Dec 17, 2016 17:57
[2016-12-17] MEDS ORDERED: VANC2PLA IVPB (18:03)
[2016-12-17] MEDS ORDERED: LEVO750T25 PO (18:03)
[2016-12-17] MEDS ORDERED: LACT1CAP57 PO (18:04)
[2016-12-17] MEDS ORDERED: HYDR-842 PO (18:13)
--- NOTE | 2016-12-24 15:23 | DS ---
Date/Time of Note Date/Time of Note DATE: 12/24/16 TIME: 15:18 Discharge Summary Admission/Discharge Info Admit Date/Time Dec 15, 2016 at 02:52 Discharge Date/Time Dec 17, 2016 at 19:07 Discharge Diagnosis Right lower extremity cellulitis Diabetes mellitus Hypertension Hyperlipidemia Tobacco use Patient Condition: Good Consults None Procedures MRI right lower extremity Hx of Present Illness Chief complaint: Right leg infection History of presenting illness: This is a 56-year-old male with history of ichthyosis and dry skin especially of the lower extremities, diabetes mellitus, hypertension, hyperlipidemia who was recently treated at an outside hospital for cellulitis and wound infection right lower extremity apparently finished IV antibiotic course 3 weeks ago, was doing well until 3 days ago when he started noticing increased erythema, edema, pruritus and pain of the right lower extremity adjacent to the wound he has. He does have a wrap on currently but there is erythema above the wrap. He denies any fevers, chills, nausea, vomiting. He was sent over to the emergency department by his primary care physician apparently to be admitted for wound care and IV antibiotics. He was started on Levaquin along with IV vancomycin, white blood cell count has improved today. Was still waiting for wound care to evaluate and see patient. Plan is for the patient to be discharged in the next 48 hours if no surgical intervention needed with IV antibiotics for home and wound care as an outpatient. Hospital Course Patient was seen by wound care, dressing was taken down, he was noted to have significant cellulitis and edema of his right lower extremity. He was maintained on vancomycin and Levaquin. He cellulitis looked much improved. Blood culture remained negative, when the dressing on the right lower extremity was taken down there was no wound actually seen. Instructions were given by wound care for dressing changes. Home health nurse was requested for dressing changes and wound care. PICC line was placed and patient was discharged on vancomycin IV along with oral Levaquin for a total of 2 weeks treatment for cellulitis. She is to follow-up with outpatient wound care physician through [facility]. MRI right lower extremity only showed cellulitis, no abscess or osteomyelitis Home Meds Active Scripts Hydroxyzine Hcl* (Atarax*) 25 Mg Tab, 25 MG PO Q6H Y for ITCHING, #30 TAB Prov:ROSALBA DEE 12/17/16 Lactobacillus Rhamnosus* (Culturelle*) 1 Each Cap.sprink, 1 CAP PO BID for 30 Days, CAP Prov:LUIZROSALBA Carissa 12/17/16 Vancomycin-NS (Vancomycin-NS) 2 Gm/250 Ml Plast..bag, 2 GM IVPB Q12 for 14 Days , EA Prov:LUIZROSALBA Carissa 12/17/16 Levofloxacin* (Levaquin*) 750 Mg Tablet, 750 MG PO DAILY@06 for 14 Days, TAB Prov:Jt DEERADHA Carissa 12/17/16 Reported Medications Hydrocodone/Acetaminophen ([place] 10-325 Tablet) 1 Each Tablet, 1 EACH PO Q6H for PAIN LEVEL 6-10, TAB 12/15/16 Gabapentin* (Gabapentin*) 100 Mg Capsule, 200 MG PO BID, #90 CAP 12/15/16 Metformin* (Glucophage*) 850 Mg Tablet, 850 MG PO WITH BREAKFAST, #30 TAB 12/15/16 Losartan-Hydrochlorothiazide (Losartan-HCTZ) 50-12.5 Mg Tab, 1 TAB PO DAILY, TAB 12/15/16 Diphenhydramine Hcl* (Diphenhydramine Hcl*) 25 Mg Capsule, 25 MG PO Q6 Y for ITCHING, CAP 12/15/16 Aspirin* (Aspirin* EC) 81 Mg Tablet.dr, 81 MG PO DAILY, TAB 12/15/16 Follow-up Plan Follow-up with primary care physician within 1 week Follow-up with repair specialist, referral through [facility] Follow-up with home health for IV antibiotics and wound care Primary Care Provider Care Physician No Primary Time spent on discharge: > 30 minutes ROSALBA DEE Dec 24, 2016 15:23
== END 2016-12-17 19:07 | disposition home or self-care (01) ==
LOC: E/R 21:07 → MS3 12-15 02:52 → PP2 12-16 03:34
PROVIDERS: ADMIT Internal Medicine; ATTEND Internal Medicine
DX: L03.115 Cellulitis of right lower limb (principal); E11.9 Type 2 diabetes mellitus without complications; E78.5 Hyperlipidemia, unspecified; I10 Essential (primary) hypertension; Z72.0 Tobacco use; Z79.82 Long term (current) use of aspirin; Z79.84 Long term (current) use of oral hypoglycemic drugs
CPT/HCPCS: 36415; 36569; 71010; 73718; 76937; 80048; 80053; 80061; 80202; 81003; 82962; 83036; 83605; 83735; 84100; 84484; 85025; 85610; 85651; 85730; 87040; 87086; 93005; 93970; 96365; 96366; 96372; 96374; 96375; C1769; G0378; J1650; J1815; J1940; J2270; J2405; J2543; J3370; J7040; J7050; Z7500; Z7502; Z7610

== ENCOUNTER 2016-12-30 16:32 | Emergency (ER) | payer SELFPAY ==
[~2016-12-30] VITALS: Ht 185.4 cm; Wt 116.5 kg
[~2016-12-30 16:32] MED LIST: ASPI-664 PO; DIPH25CA6 PO; GABA100C14 PO; HYDR-842 PO; HYDR-902 PO; LACT1CAP57 PO; LEVO750T25 PO; LOSA1TAB19 PO; METF-480 PO; VANC2PLA IVPB
[2016-12-30 16:56] VITALS: Ht 185.4 cm; Wt 116.5 kg
== END 2016-12-30 22:20 | disposition left against medical advice (07) ==
LOC: E/R 16:32
DX: Z53.21 Procedure and treatment not carried out due to patient leaving prior to being seen by health care provider (principal)